=== PATIENT | female | born 2000 ===

== ENCOUNTER 2018-04-11 01:11 | Emergency (ER) | payer MEDICAID ==
[2018-04-11 01:11] VITALS: BMI 23.0
[2018-04-11 01:39] VITALS: BP 113/73; PULSE 79; TEMP 98.4; O2SAT 100
[2018-04-11 01:58] VITALS: RESP 18
[2018-04-11 02:54] LABS: SQUAMOUS EPITHIAL < 1 /hpf (0-5); URINE BILIRUBIN NEGATIVE (NEGATIVE); URINE BLOOD NEGATIVE (NEGATIVE); URINE CLARITY Clear (Clear); URINE COLOR Yellow (YELLOW); URINE GLUCOSE (UA) NORMAL (Normal); URINE LEUKOCYTE ESTERASE NEG Leu/uL (Negative); URINE PROTEIN NEGATIVE (NEGATIVE); URINE UROBILINOGEN NORMAL mg/dL (0.2-1.0)
[2018-04-11 03:27] LABS: BASO # 0.1 K/uL (0.0-0.2); BASO % 0.8 % (0.0-2.0); EOS # 0.1 K/uL (0.0-0.7); HEMOGLOBIN 14.5 g/dL (11.0-16.0); LYMPH # 1.8 K/uL (1.0-4.3); LYMPH % 25.7 % (20.0-40.0); MEAN CELL VOLUME 96.9 fL (81.0-99.0); MEAN CORPUSCULAR HEMOGLOBIN 33.9 pg (27.0-31.0); MEAN PLATELET VOLUME 8.9 fL (7.2-11.7); MONO # 0.8 K/uL (0.0-0.8); MONO % 11.6 % (0.0-10.0); NEUT # 4.3 K/uL (1.8-7.0); NEUT % 60.9 % (50.0-75.0); NRBC % 0.1 % (0.0-2.0); RBC 4.27 Mil/uL (3.80-5.20); WHITE BLOOD COUNT 7.1 K/uL (4.8-10.8)
[2018-04-11 03:41] LABS: ALB/GLOB RATIO 1.3 (1.0-2.1); ALBUMIN 4.5 g/dL (3.5-5.0); ALT/SGPT 31 U/L (9-52); AST/SGOT 30 U/L (14-36); BLOOD UREA NITROGEN 7 mg/dL (7-17); GFR AFRICAN-AMERICAN > 60; GFR NON-AFRICAN AMERICAN > 60
--- NOTE | 2018-04-11 03:56 | C.PDOC ---
History Of Present Illness 17 year old female presents to the ED c/o malaise, lightheadedness and suprapubic pain for the past 2 days. Patient reports she missed her period, her LMP was on February but she is not sure of the date. Patient reports she took a test at home which was negative. Patient denies fever, chills, nausea , vomit, diarrhea, dysuria, hematuria, vaginal bleeding, vaginal discharge. Time Seen by Provider: 04/11/18 01:51 Chief Complaint (Nursing): Dizziness/Lightheaded History Per: Patient History/Exam Limitations: no limitations Onset/Duration Of Symptoms: Days Current Symptoms Are (Timing): Still Present Location Of Pain/Discomfort: Diffuse Radiation Of Pain To:: None Quality Of Discomfort: "Pain" Exacerbating Factors: None Alleviating Factors: None Recent travel outside of the [place]: No Additional History Per: Patient Abnormal Vaginal Bleeding: No Last Menstral Period: February Past Medical History Reviewed: Historical Data, Nursing Documentation, Vital Signs Vital Signs: Last Vital Signs Temp 98.4 F 04/11/18 01:54 Pulse 79 04/11/18 01:54 Resp 18 04/11/18 01:54 BP 113/73 04/11/18 01:54 Pulse Ox 100 04/11/18 05:14 - Medical History PMH: No Chronic Diseases Denies: Fractures, Chronic Kidney Disease Surgical History: No Surg Hx - [facility] Procedures INTRODUCTION OF SERUM/TOX/VACCINE INTO MUSCLE, PERC APPROACH (10/10/15) REMOVAL OF INT FIX FROM L METATARSOTARS JT, OPEN APPROACH (10/10/15) REPLACE OF L TOE PHALANX JT WITH SYNTH SUB, OPEN APPROACH (10/10/15) Family History: States: Unknown Family Hx - Social History Hx Tobacco Use: No Hx Alcohol Use: No Hx Substance Use: No - Immunization History Hx Tetanus Toxoid Vaccination: Yes Hx Influenza Vaccination: Yes Hx Pneumococcal Vaccination: No Review Of Systems Constitutional: Positive for: Malaise. Negative for: Fever, Chills Cardiovascular: Negative for: Chest Pain, Palpitations Respiratory: Negative for: Shortness of Breath Gastrointestinal: Positive for: Abdominal Pain. Negative for: Nausea, Vomiting Skin: Negative for: Rash Neurological: Positive for: Dizziness. Negative for: Headache Physical Exam - Physical Exam Appears: Non-toxic, No Acute Distress Skin: Normal Color, Warm, Dry Head: Atraumatic, Normacephalic Eye(s): bilateral: Normal Inspection, PERRL, EOMI Oral Mucosa: Moist Neck: Normal ROM, No Midline Cervical Tenderness, Supple Chest: Symmetrical Cardiovascular: Rhythm Regular Respiratory: Normal Breath Sounds, No Rales, No Rhonchi, No Wheezing Gastrointestinal/Abdominal: Soft, No Tenderness, No Guarding, No Rebound Extremity: Normal ROM, No Tenderness, No Swelling Neurological/Psych: Oriented x3, Normal Speech Gait: Steady ED Course And Treatment - Laboratory Results Result Diagrams: 04/11/18 03:23 04/11/18 03:23 Urine POC: Positive O2 Sat by Pulse Oximetry: 100 (ON RA) Pulse Ox Interpretation: Normal - CT Scan/US Pelvic US Other Rad Studies (CT/US): Read By Radiologist, Radiology Report Reviewed CT/US Interpretation: EXAM: US , Transvaginal. Ultrasound ovaries Doppler complete. CLINICAL HISTORY: 17 years old, female; Pain; Other: Pelvic pain; Gestational age or lmp: 6-9-18; ; Additional. info: , low abd pain. TECHNIQUE: Real-time transvaginal obstetrical ultrasound of the maternal pelvis and a first trimester . with image documentation. Transvaginal imaging was used for better evaluation of the fetus and. adnexa. 51 images are submitted. Grayscale, color and spectral pulse Doppler images are submitted.A duplex/doppler ultrasound was. performed specifically BOTH COLOR FLOW AND spectral Doppler analysis (waveforms) were. performed and interpreted. COMPARISON: No relevant prior studies available. FINDINGS: Gestation: There is a gestational sac in the uterine fundus. There is possible yolk sac present. There is no embryonic pole demonstrated. Cardiac activity was not detected The average. ultrasound age of the gestation is too small to calculate from the mean sac diameter. Uterus/cervix: Unremarkable. Ovaries: Right ovarian corpus luteum measuring 2.4 x 1.9 x 2.2 cm. The right ovary measures 3.7. x 2.8 x 2.5 cm. Right ovarian cyst measuring 1.8 x 1.1 x 1.7 cm. Duplex assessment demonstrates. presence of color Doppler signal and spectral Doppler waveform in right ovary. Duplex assessment. demonstrates presence of color Doppler signal and spectral Doppler waveform in left ovary. The left. ovary measures 2.7 x 1.5 x 1.9 cm. No torsion. Free fluid: No free fluid. IMPRESSION: 1. Right ovarian corpus luteum measuring 2.4 x 1.9 x 2.2 cm. 2. Single intrauterine gestational sac with possible yolk sac. Follow up examination is advised to. document viability of the fetus. KAYCE WELLS | Preliminary Radiology Report. CONFIDENTIALITY STATEMENT. This report is intended only for the use of the referring physician, and only in accordance with law, If you received this in error, call [phone]. Page 2 of 2. 3. No evidence of ectopic . The possibility of pseudo gestational sac with ectopic. cannot be excluded. Correlation with clinical data is recommended. Correlation with clinical evaluation and further workup or followup as recommended by patient's. clinical data. Thank you for allowing us to participate in the care of your patient. Dictated and Authenticated by: Pamela France MD Progress Note: Plan: - Labs. - US. - Tylenol 650 mg PO. UCG positive US ordered. Pt remained stable im ED, labs, US d/w pt who will follow up in clinic Reevaluation Time: 05:10 Reassessment Condition: Improved Disposition Doctor Will See Patient In The: Hospital Counseled Patient/Family Regarding: Diagnosis - Disposition Referrals: 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 - Scribe Statement The provider has reviewed the documentation as recorded by the Scribe Stan Lilly All medical record entries made by the Scribe were at my direction and personally dictated by me. I have reviewed the chart and agree that the record accurately reflects my personal performance of the history, physical exam, medical decision making, and the department course for this patient. I have also personally directed, reviewed, and agree with the discharge instructions and disposition.
--- NOTE | 2018-04-11 17:26 | US ---
HISTORY: , lower abd pain COMPARISON: None available. TECHNIQUE: FINDINGS: UTERUS: Measures 8.9 x 4.7 x 5.2 cm. Normal in size and appearance. Anteverted No fibroid or other mass lesion seen. . There is a small fluid collection within the endometrial canal at the level of the fundus. Gestational sac: MS D equals 7.0 mm = out of range Yolk sac: Questionable small yolk sac. pole: No pole visualized Heart motion. No heart motion detected. Findings could represent very early intrauterine gestation however followup followup serial serum beta HCG and serial pelvic ultrasound recommended to assess for development of viable intrauterine gestation and exclude ectopic . ENDOMETRIUM: As above CERVIX: No cervical abnormality identified. RIGHT OVARY: Measures 3.7 x 2.8 x 2.5 cm. No solid mass. Normal flow. Small cyst measuring 1.8 x 1.7 x 1.7 cm. Second cyst measuring 2.4 x 1.9 x 2.2 cm could represent corpus luteum cyst of . LEFT OVARY: Measures 2.7 x 1.5 x 1.9 cm. No solid mass. Normal flow. FREE FLUID: No significant free fluid noted. OTHER FINDINGS: None. IMPRESSION: There is a a apparent small intrauterine gestational sac with suspected but not confirmed yolk sac. Findings may represent very early however followup serial serum beta HCG and serial ultrasound recommended to assess for development of viable intrauterine gestation and exclude ectopic . Probable corpus luteum cyst right at [place]. This report was placed in PA review folder for followup.
== END 2018-04-11 05:30 | disposition home or self-care (01) ==
LOC: C.ER 01:11
DX: O26.891 Other specified pregnancy related conditions, first trimester (principal); Z3A.00 Weeks of gestation of pregnancy not specified

== ENCOUNTER 2018-08-20 21:25 | Emergency (ER) | payer MEDICAID ==
[2018-08-20] MEDS ORDERED: Lactated Ringer's 1,000 ML IV SCH (22:45)
[2018-08-20 23:21] LABS: SQUAMOUS EPITHIAL 12 /hpf (0-5); URINE BACTERIA FEW (<OCC); URINE BILIRUBIN NEGATIVE (NEGATIVE); URINE BLOOD NEGATIVE (NEGATIVE); URINE CLARITY Hazy (Clear); URINE COLOR Yellow (YELLOW); URINE GLUCOSE (UA) NORMAL (Normal); URINE LEUKOCYTE ESTERASE 3+ Leu/uL (Negative); URINE PROTEIN NEGATIVE (NEGATIVE); URINE UROBILINOGEN NORMAL mg/dL (0.2-1.0)
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
[2018-08-21 05:06] VITALS: BP 108/53; PULSE 87; TEMP 97.2
--- NOTE | 2018-08-21 12:58 | US ---
Indication: Fluid check, complaining of leaking fluid Comparison: Ob transvaginal ultrasound performed 04/11/18 Technique: Real-time ultrasound was performed through the pelvis. The patient returned to the department on 08/21/18 for additional images/ANAIS calculation. Findings: There is a single living fetus in cephalic presentation. Amniotic fluid volume is within normal limits,. Posterior fundal placenta. The placenta is not previa. There are no adnexal masses or cysts evident. Cervix length measures approximately 3.1 cm. Measurements and calculations: Fetus has a composite sonographic age of 24 weeks 4 days. This calculation is based on the biparietal diameter, head circumference, abdominal circumference, and femur length. Estimated heart rate 157 beats per min. Estimated weight 720.4 g. Amniotic fluid index measures 11.9 cm, within normal limits. Impression: Single living fetus with a composite sonographic age of 24 weeks 4 days. Estimated heart rate 157 beats per min. The study was performed for emergent evaluation, and the whole anatomic survey of the fetus was not performed. This should be performed on an outpatient elective basis as clinically warranted. Preliminary impression was provided by [employer].
== END 2018-08-21 00:55 | disposition home or self-care (01) ==
LOC: C.EROB 21:25
DX: O23.42 Unspecified infection of urinary tract in pregnancy, second trimester (principal); Z3A.23 23 weeks gestation of pregnancy
CPT/HCPCS: 76815; 81001; 99283; J7120

== ENCOUNTER 2018-09-03 14:13 | Emergency (ER) | payer MEDICAID ==
[2018-09-03 14:14] VITALS: BMI 23.0
[2018-09-03 14:22] VITALS: O2SAT 98
--- NOTE | 2018-09-03 15:21 | C.PDOC ---
History Of Present Illness 18 y/o F G1PO at 25 weeks with PMHx asthma, gestational DM, and HLD who presents to the ER for 2 days of nasal congestion, sore throat, cough, brown phlegm, and subjective fevers. Yesterday patient had two episodes of vomiting up yellow liquid and 1 episode today. Patient has recently been around a family friend's child who has a cold. Patient has not taken any medications for her cold. Patient says she is feeling normal movement. Patient denies any abdominal pain, vaginal bleeding or discharge. Time Seen by Provider: 09/03/18 14:33 Chief Complaint (Nursing): Cough, Cold, Congestion History Per: Patient History/Exam Limitations: no limitations Onset/Duration Of Symptoms: Days Current Symptoms Are (Timing): Worse Location Of Pain: Ear(s), Throat, Headache (left ear) Sick Contacts (Context): Friend(s) Associated Symptoms: Fever, Chills, Sore Throat, Cough, Sputum, Sinus Drainage, Nasal Congestion, Nausea, Vomiting Ear Symptoms: Right: Ear Pain Severity: Moderate Past Medical History Vital Signs: Last Vital Signs Temp 98.2 F 09/03/18 14:19 Pulse 97 H 09/03/18 14:19 Resp 20 09/03/18 14:19 BP 114/74 09/03/18 14:19 Pulse Ox 98 09/03/18 14:19 - Medical History PMH: Asthma, Diabetes (gestational), Hyperlipidemia Other Surgeries: toe surgery, unknown head surgery as a child? - [facility] Procedures INTRODUCTION OF SERUM/TOX/VACCINE INTO MUSCLE, PERC APPROACH (10/10/15) REMOVAL OF INT FIX FROM L METATARSOTARS JT, OPEN APPROACH (10/10/15) REPLACE OF L TOE PHALANX JT WITH SYNTH SUB, OPEN APPROACH (10/10/15) Family History: States: Unknown Family Hx - Social History Hx Tobacco Use: No Hx Alcohol Use: No Hx Substance Use: No - Immunization History Hx Tetanus Toxoid Vaccination: Yes Hx Influenza Vaccination: Yes Hx Pneumococcal Vaccination: No Review Of Systems Constitutional: Positive for: Fever, Chills ENT: Positive for: Ear Pain, Nose Discharge, Nose Congestion, Throat Pain. Negative for: Ear Discharge Cardiovascular: Negative for: Chest Pain Respiratory: Positive for: Cough, Shortness of Breath Gastrointestinal: Positive for: Nausea, Vomiting. Negative for: Abdominal Pain, Diarrhea, Constipation Skin: Negative for: Rash Physical Exam - Physical Exam Appears: Non-toxic, No Acute Distress Skin: Normal Color, Warm Head: Atraumatic, Normacephalic Eye(s): bilateral: Normal Inspection Ear(s): Left: Other (mild erythema at entrance of L auditory canal) Throat: Erythema, No Exudate, No Mass Neck: Normal, No Midline Cervical Tenderness, No Paracervical Tenderness Lymphatic: Normal Exam Cardiovascular: Rhythm Regular Respiratory: Normal Breath Sounds, No Accessory Muscle Use, No Rales, No Rhonchi, No Stridor, No Wheezing Gastrointestinal/Abdominal: Normal Exam (gravid ) Extremity: No Pedal Edema ED Course And Treatment O2 Sat by Pulse Oximetry: 98 Medical Decision Making Medical Decision Making: Impression: URI Rapid strep and flu tests negative. Patient re-examined and feeling better. Patient stable for discharge. Patient to rest, increase fluid intake, and take Tylenol as needed. Patient will follow up with PMD. If symptoms persist or worsen patient to return to ED. Disposition - Disposition Referrals: [facility] [Outside] [facility] [Outside] Disposition: HOME/ ROUTINE Disposition Time: 16:45 Condition: STABLE Additional Instructions: KAYCE CAVAZOS, thank you for letting us take care of you today. Your provider was Marielos Barrios DO and you were treated for 25 WEEKS /VOMITING/COUGHING. The emergency medical care you received today was directed at your acute symptoms. It may take several days for your symptoms to resolve. Return to the Emergency Department if your symptoms worsen, do not improve, or if you have any other problems. Patient may take Tylenol as needed. Please contact your doctor or call one of the physicians/clinics you have been referred to that are listed on the Patient Visit Information form that is included in your discharge packet. Bring any paperwork you were given at discharge with you along with any medications you are taking to your follow up visit. Our treatment cannot replace ongoing medical care by a primary care provider outside of the emergency department. Thank you for allowing the [facility] team to be part of your care today. 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 MD/DO has examined the patient and agrees with the treatment plan.
[2018-09-03 16:20] LABS: INFLUENZA A B NEGATIVE FOR FLU A/B (NEGATIVE)
[2018-09-03 16:53] VITALS: BP 116/72; PULSE 80; RESP 18; TEMP 98.1
== END 2018-09-03 16:52 | disposition home or self-care (01) ==
LOC: C.ER 14:13
DX: J06.9 Acute upper respiratory infection, unspecified (principal)

== ENCOUNTER 2018-11-17 10:02 | Emergency (ER) | payer MEDICAID ==
[2018-11-17 22:40] VITALS: BMI 28.8
[2018-11-17] MEDS ORDERED: Lactated Ringer's 1,000 ML IV ONE (22:55)
[2018-11-17 23:14] LABS: BASO % 0.5 % (0.0-2.0); EOS % 0.7 % (0.0-4.0); LYMPH # 1.5 K/uL (1.0-4.3); LYMPH % 21.5 % (20.0-40.0); MEAN CORPUSCULAR HEMOGLOBIN 30.8 pg (27.0-31.0); MEAN CORPUSCULAR HGB CONC 33.6 g/dL (33.0-37.0); MEAN PLATELET VOLUME 10.2 fL (7.2-11.7); MONO # 0.8 K/uL (0.0-0.8); NEUT # 4.6 K/uL (1.8-7.0); NEUT % 65.3 % (50.0-75.0); RBC 3.52 Mil/uL (3.80-5.20); RED CELL DISTRIBUTION WIDTH 13.6 % (11.5-14.5); WHITE BLOOD COUNT 7.1 K/uL (4.8-10.8)
[2018-11-17 23:16] LABS: HEMOGLOBIN 10.8 g/dL (11.0-16.0); MEAN CELL VOLUME 91.6 fL (81.0-99.0)
[2018-11-17 23:23] LABS: SQUAMOUS EPITHIAL 10 /hpf (0-5); URINE BACTERIA RARE (<OCC); URINE BILIRUBIN NEGATIVE (NEGATIVE); URINE BLOOD NEGATIVE (NEGATIVE); URINE CLARITY Hazy (Clear); URINE COLOR Yellow (YELLOW); URINE GLUCOSE (UA) NORMAL (Normal); URINE LEUKOCYTE ESTERASE 3+ Leu/uL (Negative); URINE PROTEIN 1+ mg/dL (NEGATIVE)
[2018-11-17 23:25] LABS: ALB/GLOB RATIO 1.2 (1.0-2.1); ALBUMIN 3.8 g/dL (3.5-5.0); ALT/SGPT 10 U/L (9-52); AMYLASE 69 U/L (30-110); AST/SGOT 26 U/L (14-36); BLOOD UREA NITROGEN 6 mg/dL (7-17); CALCIUM 9.4 mg/dl (8.6-10.4); GFR NON-AFRICAN AMERICAN > 60; LIPASE 61 U/L (23-300)
--- NOTE | 2018-11-17 23:48 | OBDCSUM ---
Datetime: 11/17/2018 23:41 Discharged to, Provider: Home Follow up at, Provider: Dr Ferrer/ clinic Disch Instr Activity: Normal activity Disch Instr Diet: Restricted, specify Discharge Diet restrict Prov: clear liquid diet x24hrs as tolerted Discharge Time: 11/17/2018 23:47 Follow up in weeks, Provider: 11/19/18 Disch Referrals: None Disch Activity Restrictions: No lifting Discharge Comment, Provider: nancy baum labor, femissyr dehdration uti precuaiohannah pineda
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
[2018-11-18 04:10] VITALS: BP 90/55; PULSE 89; TEMP 98
== END 2018-11-17 23:41 | disposition home or self-care (01) ==
LOC: C.EROB 10:02
DX: O99.613 Diseases of the digestive system complicating pregnancy, third trimester (principal); K29.70 Gastritis, unspecified, without bleeding; Z3A.36 36 weeks gestation of pregnancy